=== PATIENT | female | born 1950 | race Caucasian/White ===

== ENCOUNTER 2018-09-29 06:57 | Observation (INO) ==
--- NOTE | 2018-09-23 08:02 | EKG Report ---
Test Performed on : 09/23/2018 07:42:15 AM Test Reason : PAT Blood Pressure : / mmHG Vent. Rate : 064 BPM Atrial Rate : 064 BPM P-R Int : 162 ms QRS Dur : 070 ms QT Int : 394 ms P-R-T Axes : 023 041 048 degrees QTc Int : 406 ms Normal sinus rhythm. Normal ECG No previous ECGs available Confirmed by Roman LUKE, Ramsey Myers ([id number]) on 09/24/2018 8:46:11 AM
[2018-09-23 08:11] LABS: BASO# 0.06 X1000 (0.0-0.2); BASO% 0.9 % (0.0-0.8); EOS% 1.6 % (0.0-10.0); HEMATOCRIT 40.1 % (37.0-47.0); HEMOGLOBIN 13.7 g/dL (12.0-16.0); IMM GRAN# 0.02 X1000 (0.0-0.04); IMM GRAN% 0.3 % (0.0-0.5); LYMPH# 1.82 X1000 (1.2-3.4); LYMPH% 28.8 % (20.5-51.1); MCH 30.6 PG (27-31); MCHC 34.2 g/dL (33-37); MCV 89.7 FL (81-99); MONO# 0.48 X1000 (0.11-0.59); MONO% 7.6 % (1.7-9.3); MPV 9.5 FL (7.4-10.4); NEUT# 3.84 X1000 (1.4-6.5); NEUT% 60.8 % (42.2-75.2); PLT 369 X1000 (130-400); RBC 4.47 XMIL (4.2-5.4); RDW 12.7 % (11.5-14.5); WBC 6.32 X1000 (4.8-10.8)
[2018-09-23 08:16] LABS: URINE SOURCE CLEAN CATCH
[2018-09-23 08:20] LABS: BILIRUBIN URINE NEGATIVE (NEGATIVE); BLOOD URINE NEGATIVE (NEGATIVE); COLOR YELLOW; GLUCOSE URINE NEGATIVE (NEGATIVE); KETONE URINE NEGATIVE (NEGATIVE); LEUKOCYTES URINE SMALL (NEGATIVE); NITRITE URINE NEGATIVE (NEGATIVE); PROTEIN URINE NEGATIVE (NEGATIVE); TURBIDITY URINE CLEAR (CLEAR); UROBILINOGEN URINE NORMAL (NORMAL)
[2018-09-23 08:22] LABS: UR EPITHELIAL CELLS <10 /HPF (<10); URINE BACTERIA NEGATIVE /HPF; URINE RBC <10 /HPF (<10); URINE WBC <10 /HPF (<10)
[2018-09-23 08:27] LABS: INR 0.86; PROTIME 12.5 Seconds (11.0-16.0)
[2018-09-23 08:28] LABS: PTT 30.7 Seconds (22.3-41.8)
[2018-09-23 08:38] LABS: AGAP 11; BUN 13 mg/dL (8-22); CHLORIDE 92 mmol/L (98-107); COSMO 255; CREATININE 0.9 mg/dL (0.5-0.9); ESTIMATED GFR > 60; GLUCOSE 95 mg/dL (70-104); POTASSIUM 3.9 mmol/L (3.5-5.1); SODIUM 127 mmol/L (136-145); TCO2 24 mmol/L (25-35)
[2018-09-29] MEDS ORDERED: PEPCID ONE (07:30)
[2018-09-29] MEDS ORDERED: COLACE ONE (07:30)
[2018-09-29] MEDS ORDERED: LYRICA ONE (07:31)
[2018-09-29] MEDS ORDERED: REGLAN ONE (07:31)
[2018-09-29] MEDS ORDERED: KEFZOL 1 GM/D5W 2 GM/100 ML IVPB ONE (07:32)
[2018-09-29] MEDS ORDERED: LR 1,000 ML ONE (07:32)
[2018-09-29] MEDS ORDERED: CELEBREX ONE (07:33)
[2018-09-29] MEDS ORDERED: DURAMORPH ONE (08:16)
[2018-09-29] MEDS ORDERED: MARCAINE 0.25% PF/EPI 1:200,000 ONE (08:17)
[2018-09-29] MEDS ORDERED: VANCOMYCIN ONE (08:17)
[2018-09-29] MEDS ORDERED: EXPAREL 1.3% ONE (08:17)
[2018-09-29] MEDS ORDERED: SODIUM CHLORIDE 0.9% ONE (08:17)
[2018-09-29] MEDS ORDERED: TORADOL ONE (08:17)
[2018-09-29] MEDS ORDERED: NEOSPORIN G.U. IRRIGANT ONE (08:18)
[2018-09-29] MEDS ORDERED: FENTANYL ONE (08:31)
[2018-09-29] MEDS ORDERED: TRANSDERM-SCOP ONE (08:31)
[2018-09-29] MEDS ORDERED: DIPRIVAN 1% ONE (08:31)
[2018-09-29] MEDS ORDERED: XYLOCAINE-MPF 2% ONE (08:33)
[2018-09-29] MEDS: CYKLOKAPRON 1,000 MG/NS 2,000 MG/200 ML IVPB ONE ×2 (09:10→10:21)
[2018-09-29] MEDS ORDERED: DECADRON ONE (09:34)
[2018-09-29] MEDS ORDERED: ROBINUL ONE (09:34)
[2018-09-29] MEDS ORDERED: ZOFRAN ONE (09:34)
[2018-09-29 09:45] LABS: URINE SOURCE CATH
[2018-09-29 10:02] LABS: BILIRUBIN URINE NEGATIVE (NEGATIVE); BLOOD URINE NEGATIVE (NEGATIVE); COLOR YELLOW; GLUCOSE URINE NEGATIVE (NEGATIVE); KETONE URINE NEGATIVE (NEGATIVE); LEUKOCYTES URINE NEGATIVE (NEGATIVE); NITRITE URINE NEGATIVE (NEGATIVE); PH URINE 7.5; PROTEIN URINE NEGATIVE (NEGATIVE); SP GRAVITY URINE 1.006; TURBIDITY URINE CLEAR (CLEAR); UROBILINOGEN URINE NORMAL (NORMAL)
[2018-09-29 10:04] LABS: UR EPITHELIAL CELLS <10 /HPF (<10); URINE BACTERIA NEGATIVE /HPF; URINE RBC <10 /HPF (<10); URINE WBC <10 /HPF (<10)
[2018-09-29] MEDS: DILAUDID ONE ×2 (11:19→11:28)
--- NOTE | 2018-09-29 11:29 | Diag Imaging Result Doc PS360 ---
EXAM: KNEE 1-2 VIEWS-RIGHT HISTORY: post op TECHNIQUE: Portable right knee two views COMPARISON: None. FINDINGS: There has been orthopedic replacement of the right knee. There are anterior skin yvette and there is a superior surgical drain. No fracture. No dislocation. IMPRESSION: Good alignment to the femoral and tibial components following orthopedic replacement of the knee. Electronically signed by Levi Shabazz 09/29/2018 11:27 AM
[2018-09-29] MEDS ORDERED: NS 1,000 ML ONE (11:30)
--- NOTE | 2018-09-29 12:40 | OPERATIVE NOTE ---
PROCEDURE DATE: 09/29/2018 PREOPERATIVE DIAGNOSIS: Degenerative joint disease of the right knee. POSTOPERATIVE DIAGNOSIS: Degenerative joint disease of the right knee. PROCEDURE PERFORMED: Right total knee replacement. SURGEON: Jesus Rojo MD. CLOTH EXAMINER HAND: JUDSON Spencer. Mr. Antunez was necessary for proper retraction and manipulation of the knee during the case. ANESTHESIA: Spinal. COMPLICATIONS: None. PROCEDURE IN DETAIL: This 68-year-old female presents for surgical right knee replacement. Risks, benefits, and no guarantees were discussed, and she is willing to proceed. She was taken the operating room and the knee prepped and draped in the usual sterile fashion. A time-out was taken to confirm operative site, procedure, and patient. The leg was wrapped with an Esmarch. Tourniquet was inflated to 350 mmHg. A midline incision was made over the front of the knee, followed by a quad tendon sparing arthrotomy. The patella was everted and resurfaced with freehand technique and subluxed laterally. The knee was flexed. An intramedullary hole made in the distal femur and the distal femoral cutting block secured in 5 degrees of valgus. Distal femoral resection was made and the femur sized to a DePuy size 4 femoral implant. The cutting block was secured to the distal femur, and the anterior, posterior, and chamfer cuts sequentially made. Due to a valgus deformity in the knee, a posterior stabilized design was selected and the notch created using the provided guide in the femur. Any remaining osteophytes were debrided about the femur. The knee was flexed and a PCL retractor placed behind the tibia to protect the neurovascular bundle. The tibial cutting block was secured with extramedullary alignment and the tibial resection made. Flexion and extension gaps were equal with a 5 mm spacer. The tibia was sized to a size 4 tibial tray. A trial reduction was performed with a size 4 tibial tray, a size 4 cruciate retaining right femoral component trial, and a 5 mm thick poly bearing insert. Good range of motion and stability were noted. Slight lateral tightness was noted and a popliteus release corrected this. The patella was sized to a 35 medialized dome patella. The drill paddle was used to prepare for the patellar implant and the lug holes on the femoral component. After final preparation, the trial components were removed. All bony surfaces were thoroughly irrigated with pulsatile lavage with irrigant. Cement with a gram of vancomycin was utilized to cement a DePuy size 4 rotating platform tibial baseplate, a size 4 right standard width posterior stabilized femoral component, and a 35 medialized dome patella. Excess cement was removed with a Mack elevator while it cured. The joint capsule was injected with Exparel and a Hemovac drain placed. After full curing of the cement, a polyethylene bearing size 4, 5 mm thick posterior stabilized insert was inserted into the tibial tray and the knee reduced. Final range of motion was 0 to 130 degrees with midline patellar tracking. The arthrotomy was copiously irrigated and closed over the drain with #1 Vicryl in the arthrotomy, 2-0 Vicryl in the subcutaneous, and skin yvette on the skin edges. Sterile dressings completed the closure. The patient was recovered from anesthesia and transferred to the recovery room in stable condition. No intraoperative complications were noted. Instrument count and sponge count were correct at the time of closure. cc: Galen Rojo MD
[2018-09-29] MEDS ORDERED: ZOFRAN ODT PO PRN (13:00)
[2018-09-29] MEDS ORDERED: MORPHINE IV PRN ×3 (13:00)
[2018-09-29] MEDS ORDERED: OXY IR PO PRN (13:26)
[2018-09-29] MEDS: ULTRAM PO SCH ×2 (13:29→18:54)
[2018-09-29] MEDS: NS 1,000 ML IV SCH (13:30)
--- NOTE | 2018-09-29 14:22 | ORTHOPAEDICS PROGRESS NOTE ---
DATE: 09/29/2018 SUBJECTIVE: Ms. Shaffer is seen status post total knee replacement. Presently, she is afebrile with stable vital signs. Her bandage is clean and dry. She appears to be motor and sensory intact. She is comfortable with pain management. We will plan on discontinuing lines later and mobilizing her here soon. We will consider discharge home, either later today or tomorrow pending mobilization. cc: Galen Rojo MD
[2018-09-29] MEDS: KEFZOL 2 GM/D5W 2 GM/50 ML IVPB IV SCH (17:08)
[2018-09-29] MEDS: PERIDEX MT SCH (21:04)
[2018-09-29] MEDS: OXY IR PO PRN (21:05)
[2018-09-29] MEDS: CELEBREX PO SCH (21:05)
[2018-09-29] MEDS: COLACE PO SCH (21:06)
[2018-09-30] MEDS: ULTRAM PO SCH ×3 (01:53→13:30)
[2018-09-30] MEDS: KEFZOL 2 GM/D5W 2 GM/50 ML IVPB IV SCH (01:53)
[2018-09-30] MEDS: NS 1,000 ML IV SCH (01:55)
[2018-09-30 06:01] LABS: HEMATOCRIT 34.3 % (37.0-47.0); HEMOGLOBIN 11.7 g/dL (12.0-16.0)
[2018-09-30 06:15] LABS: AGAP 11; BUN 13 mg/dL (8-22); CALCIUM 8.3 mg/dL (8.8-10.2); CHLORIDE 90 mmol/L (98-107); COSMO 248; CREATININE 0.7 mg/dL (0.5-0.9); ESTIMATED GFR > 60; GLUCOSE 127 mg/dL (70-104); POTASSIUM 4.2 mmol/L (3.5-5.1); SODIUM 122 mmol/L (136-145); TCO2 21 mmol/L (25-35)
[2018-09-30] MEDS ORDERED: SYNTHROID PO SCH (07:00)
[2018-09-30 07:38] VITALS: BP 143/55
--- NOTE | 2018-09-30 07:44 | ORTHOPAEDICS PROGRESS NOTE ---
DATE: 09/30/2018 Ms. Shaffer was seen status post total knee replacement. Presently, she is afebrile with stable vital signs. Her bandage is clean and dry. She is motor and sensory intact. We will plan on mobilizing her today. Hematocrit is stable. She has a slight hyponatremia which appears to be stable. She can be mobilized today and we will discontinue all IVs and Green. She can go home today, later after therapy. We will arrange for home therapy. We will follow up with her in roughly 10 to 12 days for staple removal. She is to continue her home medicines. We have placed her on aspirin twice a day for DVT prophylaxis. She also has pain medicine consisting of [place] and Bactrim just for prophylaxis. She can return in the interim for any worsening signs or symptoms. cc: Galen Rojo MD
[2018-09-30] MEDS ORDERED: PEPCID PO SCH (09:00)
[2018-09-30] MEDS ORDERED: HYDROCHLOROTHIAZIDE PO SCH (09:00)
[2018-09-30] MEDS ORDERED: GLUCOPHAGE XR PO SCH (09:00)
[2018-09-30] MEDS ORDERED: NEXIUM PO SCH (09:00)
[2018-09-30] MEDS ORDERED: ASPIRIN PO SCH (09:00)
[2018-09-30] MEDS: OXY IR PO PRN ×2 (09:39→13:23)
[2018-09-30] MEDS: COLACE PO SCH (09:42)
[2018-09-30] MEDS: PERIDEX MT SCH (09:42)
[2018-09-30] MEDS: CELEBREX PO SCH (09:43)
[2018-09-30] MEDS: ZOFRAN IV PRN ×2 (09:48→13:24)
== END 2018-09-30 15:30 | disposition home health service (06) ==
LOC: 4N 06:57 → OR 06:57
PROVIDERS: ADMIT Orthopaedic Surgery Adult Reconstructive Orthopaedic Surgery; ATTEND Orthopaedic Surgery Adult Reconstructive Orthopaedic Surgery
CPT/HCPCS: 73560; 80048; 81001; 82948; 85014; 85018; 85025; 85610; 85730; 86850; 86900; 86901; 88305; 88311; 93005; 93010; 94761; 94799; 97110; 97116; 97162; A9270; C9290; J0690; J1100; J1170; J1885; J2274; J2275; J2405; J3010; J3370; J7030; J7120; Q9974; S0020; XXXXX